=== PATIENT | male | born 1950 | race Caucasian/White ===

== ENCOUNTER 2024-04-20 09:44 | Emergency (ER) | payer MEDICARE ==
[2024-04-20 10:29] LABS: A/G RATIO 0.8 (0.8-2.0); ALBUMIN 3.4 g/dL (3.4-5.0); ANION GAP 11.8 mmol/L (5.0-15.0); BILIRUBIN TOTAL 0.4 mg/dL (0.0-1.0); BUN/CREATININE RATIO 15.2 (6-25); CALCIUM 9.2 mg/dL (8.5-10.1); CARBON DIOXIDE,CO2 28.2 mmol/L (21.0-32.0); CREATININE 0.79 mg/dL (0.70-1.30); EST CRCL DRUG DOSING (CG) 83.28 mL/min; PROTEIN TOTAL,TP 7.6 g/dL (6.4-8.2)
[2024-04-20] MEDS: Ketorolac 15 MG/ML SDV IVPUSH ONE (10:50)
[2024-04-20] MEDS: Ketorolac 15 MG/ML SDV ONE (10:50)
[2024-04-20 10:55] LABS: BASOPHILS ABSOLUTE AUTO 0.03 K/uL (0.02-0.10); BASOPHILS PERCENT AUTO 0.3 % (0.0-0.5); EOSINOPHILS ABSOLUTE AUTO 0.12 K/uL (0.04-0.40); EOSINOPHILS PERCENT AUTO 1.1 % (1.0-5.0); HEMATOCRIT 44.3 % (40.0-54.0); HEMOGLOBIN 14.1 g/dL (13.0-18.0); LYMPHOCYTES ABSOLUTE AUTO 1.26 K/uL (1.50-4.00); LYMPHOCYTES PERCENT AUTO 11.6 % (20.0-40.0); MEAN CORPUSCULAR HEMOGLOBIN 28.1 pg (27.0-32.0); MEAN CORPUSCULAR HGB CONC 31.8 g/dL (31.0-35.0); MEAN CORPUSCULAR VOLUME 88 fL (76-96); MEAN PLATELET VOLUME 11.9 fL (6.0-10.0); MONOCYTES ABSOLUTE AUTO 0.62 K/uL (0.20-0.80); MONOCYTES PERCENT AUTO 5.7 % (3.0-10.0); NEUTROPHILS ABSOLUTE AUTO 8.83 K/uL (2.00-7.50); NEUTROPHILS PERCENT AUTO 81.3 % (45.0-70.0); PLATELET COUNT,PLT 170 K/uL (150-400); RED BLOOD CELL COUNT 5.01 M/uL (4.50-6.50); RED CELL DISTRIBUTION WIDTH 15.8 % (11.0-16.0); WHITE BLOOD CELL COUNT,WBC 10.9 K/uL (4.0-11.0)
[2024-04-20] MEDS ORDERED: Acetaminophen/HYDROcodone 325-5 MG Tab ONE (11:00)
[2024-04-20 11:38] VITALS: BP 153/80; PULSE 94
== END 2024-04-20 11:27 | disposition home or self-care (01) ==
LOC: LB.ED 09:44
DX: M19.032 Primary osteoarthritis, left wrist (principal); I10 Essential (primary) hypertension; E78.00 Pure hypercholesterolemia, unspecified; K21.9 Gastro-esophageal reflux disease without esophagitis; E11.9 Type 2 diabetes mellitus without complications; F17.200 Nicotine dependence, unspecified, uncomplicated; Z90.49 Acquired absence of other specified parts of digestive tract; Z79.84 Long term (current) use of oral hypoglycemic drugs; Z79.899 Other long term (current) drug therapy
CPT/HCPCS: 36415; 73100-LT; 80053; 84484; 84550; 85025; 96372; 99284; A9270-GY; J1885